=== PATIENT | male | born 2000 | race Caucasian/White ===

== ENCOUNTER 2020-03-19 13:59 | Outpatient (CLI) | payer OTHER, SELFPAY | END 2020-03-19 14:00 | disposition home or self-care (01) | PROVIDERS: PCP Clinical Nurse Specialist; Visit Provider Clinical Nurse Specialist | DX: J02.9 Acute pharyngitis, unspecified (principal) | CPT/HCPCS: 87081; 87880 ==

== ENCOUNTER 2020-07-05 10:32 | Outpatient (CLI) | payer OTHER, SELFPAY ==
--- NOTE | 2020-07-15 12:31 | WPDHOLTEREM ---
Holter/Event Monitor Holter/Event Monitor Date of procedure: 07/05/20 Procedure Type: 48 hour holter monitor Indications: Palpitations Conclusion: 1. 48 hour holter monitor on 07/05/20. 2. Underlying rhythm is sinus rhythm. HR range 43-164 bpm; average HR 77 bpm. 3. There are 8 premature supraventricular complexes. No supraventricular tachycardia. 4. There is 1 premature ventricular complex. No ventricular tachycardia. 5. No sinoatrial or atrioventricular blocks. No significant pauses greater than 2 seconds. 6. No symptoms available for correlation.
== END 2020-07-05 10:33 | disposition home or self-care (01) ==
PROVIDERS: PCP Internal Medicine; Visit Provider Nurse Practitioner
DX: R00.2 Palpitations (principal)
CPT/HCPCS: 93225; 93226

== ENCOUNTER 2023-01-31 15:45 | Emergency (ER) | payer OTHER, SELFPAY ==
[2023-01-31 15:55] VITALS: BP 112/76; PULSE 82; RESP 16; TEMP 36.6; O2SAT 100
--- NOTE | 2023-01-31 15:55 | ED.EAR ---
HPI - Ear Problem General Chief complaint: Ear Stated complaint: lt ear pain Time Seen by Provider: 01/31/23 16:15 Source: patient and RN notes reviewed Mode of arrival: ambulatory Limitations: no limitations History of Present Illness HPI Narrative: 22-year-old male presents concern for left ear pain. Reports pain started yesterday. He denies drainage from the ear. He reports the pain radiates to the jaw and behind the ear. He denies rhinorrhea, nasal congestion, fever. Reports he went swimming couple days ago MD Complaint: ear pain Related Data Allergies Allergy/AdvReac Type Severity Reaction Status Date / Time No Known Allergies Allergy Unverified 01/31/23 15:58 Review of Systems Review of Systems: CONSTITUTIONAL: Denies malaise, chills, sweats, or fever. EYES: Denies visual changes, redness, or discharge. ENT: Denies rhinorrhea, congestion, sinus pain, and sore throat. Reports left ear pain CARDIOVASCULAR: Denies chest pain, palpitations, or edema. RESPIRATORY: Denies cough. Denies dyspnea. GASTROINTESTINAL: Denies abdominal pain, nausea, vomiting, diarrhea SKIN: Denies rash or itching. MUSCULOSKELETAL: Denies myalgia. NEUROLOGIC: Denies headache. All systems reviewed & are unremarkable except as noted in HPI and below PMFSH Family History Family History (Updated 01/12/20 @ 08:37 by Christel Benoit [facility]) Grandparent COPD (chronic obstructive pulmonary disease) PSP (progressive supranuclear palsy) Parkinsons disease Social History Social History (Updated 06/26/20 @ 09:05 by Christel Benoit [facility]) Smoking status: Current some day smoker Alcohol intake: current Alcohol use details: rarely Comments At time of signature, agree with nursing past medical, surgical, social and family history. There is no relevant family history pertinent to the presenting complaint Exam Narrative: GENERAL: Well-appearing, well-nourished, and in no acute distress. HEAD: Normocephalic EYES: PERRLA, conjunctivae clear ENT: Nares clear. Mucous membranes moist. Right tM pearly molina with dull light reflex, left TM erythematous and dull; left tragal tenderness with EAC erythema and edema, no drainage noted. Oropharynx not erythematous without lesions. Tonsils not enlarged and without exudate, no drooling, no hoarseness, no trismus, uvula midline. NECK: Supple. No lymphadenopathy CHEST: No respiratory distress, speaks in full sentences. HEART: Regular rate and rhythm. No murmur heard. SKIN: Warm, dry, no rash. NEURO: Alert and oriented x3. PSYCH: Normal mood and affect Course Course Emergency Course: Patient is aware of diagnosis, understands and agrees to treatment plan. Anticipatory guidance given. Patient agrees to follow-up as directed and is aware of reasons to seek care at the emergency department. Portions of this record may have been created with voice recognition software Level of Care: Express Care Visit Vital Signs Vital signs: Vital Signs Temperature 98 F 01/31/23 15:55 Pulse Rate 82 01/31/23 15:55 Respiratory Rate 16 01/31/23 15:55 Blood Pressure 112/76 01/31/23 15:55 Pulse Oximetry 100 01/31/23 15:55 Temperature 98 F 01/31/23 15:55 Pulse Rate 82 01/31/23 15:55 Respiratory Rate 16 01/31/23 15:55 Blood Pressure 112/76 01/31/23 15:55 Pulse Oximetry 100 01/31/23 15:55 Reviewed. Medical Decision Making MDM Narrative Medical decision making narrative: Differential diagnosis considered: Gore virus, strep pharyngitis, allergic rhinitis, upper respiratory tract infection, sinusitis, rhinosinusitis, nasopharyngitis. viral pharyngitis, otitis media, otitis externa, otitis effusion, cerumen impaction, foreign body. Exam findings show no acute concerns or changes; patient is non-toxic appearing and is in no distress. Patient is appropriate for outpatient treatment and follow-up. Vital Signs Vital Signs: Vital Signs Temperature 98 F 01/31/23 15:55
== END 2023-01-31 16:30 | disposition home or self-care (01) ==
PROVIDERS: Emergency Provider Nurse Practitioner
DX: H60.92 Unspecified otitis externa, left ear (principal); H66.92 Otitis media, unspecified, left ear; F17.200 Nicotine dependence, unspecified, uncomplicated
CPT/HCPCS: 99213; G0463

== ENCOUNTER 2023-12-22 11:39 | Emergency (ER) | payer OTHER, SELFPAY ==
[2023-12-22 11:45] VITALS: BP 110/69; PULSE 70; RESP 16; TEMP 35.9; O2SAT 99
--- NOTE | 2023-12-22 12:33 | ED.GENADULT ---
HPI - General Adult General Chief complaint: Anxiety Stated complaint: ANXIETY Time Seen by Provider: 12/22/23 11:50 Source: patient, family (mother) and RN notes reviewed Mode of arrival: ambulatory Limitations: no limitations History of Present Illness HPI narrative: Patient presents today complaining of anxiety and panic attack symptoms x6 days. They started last week while he was out with friends and included increased heart rate, sweats, hyperventilation, and restlessness. States symptoms improve after eating or sleeping. States symptoms are better today than they had been in the previous days and reports only feelings of underlying restlessness today. Denies any new stressors aside from stopping vaping recently. Denies SI or HI. Made an appointment with his PCP for next week for follow-up. States he went to the ER yesterday for evaluation, but left due to long wait times. Related Data Allergies Allergy/AdvReac Type Severity Reaction Status Date / Time No Known Allergies Allergy Verified 12/22/23 12:27 Review of Systems Review of Systems: CONSTITUTIONAL: Denies body aches, fever, chills, or sweats. EYES: Denies visual changes, redness, or discharge. ENT: Denies rhinorrhea, congestion, sore throat, or otalgia. CARDIOVASCULAR: Denies chest pain, palpitations, or edema. RESPIRATORY: Denies cough or dyspnea. GASTROINTESTINAL: Denies abdominal pain, nausea, vomiting, or diarrhea. GENITOURINARY: Denies dysuria or hematuria. SKIN: Denies rash, itching, or wounds. MUSCULOSKELETAL: Denies back pain, joint pain, or myalgia. NEUROLOGIC: Denies headache, numbness, tingling, or weakness. PSYCH: +anxiety [facility] Family History Family History Grandparent COPD (chronic obstructive pulmonary disease) PSP (progressive supranuclear palsy) Parkinsons disease Social History Social History Smoking status: Current some day smoker Alcohol intake: current Alcohol use details: rarely Comments At time of signature, I have reviewed and agree with nursing past medical, surgical, social and family history unless otherwise noted. Please see nursing chart for further information. There is no relevant family history pertinent to the presenting complaint Exam Narrative: GENERAL: Well-appearing, well-nourished, and in no acute distress. HEAD: Normocephalic, atraumatic. EYES: EOMI. No redness or drainage. Conjunctivae normal. ENT: Mucous membranes pink and moist. Nares clear. No rhinorrhea. NECK: Normal AROM. Supple. No lymphadenopathy. CHEST: No respiratory distress. Clear to auscultation. HEART: Regular rate and rhythm. No murmur appreciated. EXTREMITIES: Normal range of motion. No edema. SKIN: Warm, dry, no rash. Capillary refill normal. Normal skin turgor. NEURO: No focal deficits. Alert and oriented x3. Gait steady. PSYCH: Mildy anxious. Course Course Level of Care: Express Care Visit Vital Signs Vital signs: Vital Signs Temperature 96.7 F L 12/22/23 11:45 Pulse Rate 70 12/22/23 11:45 Respiratory Rate 16 12/22/23 11:45 Blood Pressure 110/69 12/22/23 11:45 Pulse Oximetry 99 12/22/23 11:45 Temperature 96.7 F L 12/22/23 11:45 Pulse Rate 70 12/22/23 11:45 Respiratory Rate 16 12/22/23 11:45 Blood Pressure 110/69 12/22/23 11:45 Pulse Oximetry 99 12/22/23 11:45 Reviewed Medical Decision Making MDM Narrative Medical decision making narrative: Prescription for hydroxyzine sent to pharmacy. Recommend keeping scheduled visit with PCP next week. Anticipatory guidance given. Differential Diagnosis Differential Diagnosis: Anxiety, panic attack Vital Signs Vital Signs: Vital Signs Temperature 96.7 F L 12/22/23 11:45 Pulse Rate 70 12/22/23 11:45 Respiratory Rate 16 12/22/23 11:45 Blood Pressure 110/69 12/22/23 11:45 Pulse Oximet
== END 2023-12-22 12:40 | disposition home or self-care (01) ==
PROVIDERS: Emergency Provider Nurse Practitioner; PCP Internal Medicine
DX: F41.9 Anxiety disorder, unspecified (principal); F17.200 Nicotine dependence, unspecified, uncomplicated
CPT/HCPCS: 99213; G0463

== ENCOUNTER 2023-12-31 11:02 | Outpatient (CLI) | payer OTHER, SELFPAY ==
[2023-12-31 18:34] LABS: Basophils Absolute Auto 0.1 K/mm3 (0.0-0.1); Basophils Percent Auto 1.2 % (0.2-1.2); Eosinophils Absolute Auto 0.2 K/mm3 (0-0.3); Eosinophils Percent Auto 2.4 % (0-4.4); Hematocrit 47.3 % (42.0-52.0); Hemoglobin 15.9 g/dL (14.0-18.0); Immature Granulocyte Absolute 0.03 K/mm3 (0.00-0.031); Immature Granulocyte Percent A 0.4 % (0-0.5); Immature Platelet Fraction Pct 6.9 % (0.9-11.2); Lymphocytes Absolute Auto 2.64 K/mm3 (0.9-3.2); Lymphocytes Percent Auto 34.8 % (18.3-44.2); Mean Corpuscular HGB Conc 33.6 g/dl (32-36); Mean Corpuscular Hemoglobin 28.6 pg (26-34); Mean Corpuscular Volume 85.2 fl (80-100); Mean Platelet Volume 11.8 fl (7.4-10.4); Monocytes Absolute Auto 0.6 K/mm3 (0.1-0.6); Monocytes Percent Auto 7.6 % (2.6-8.5); Neutrophils Absolute Auto 4.1 K/mm3 (1.3-6.7); Neutrophils Percent Auto 53.6 % (45.5-73.1); Platelet Count Result 159 k/mm3 (150-375); Red Blood Count 5.55 M/mm3 (4.6-6.20); Red Cell Distribution Width 11.9 % (11.5-14.5); White Blood Count 7.6 K/mm3 (4.5-10.0)
[2023-12-31 18:44] LABS: Alanine Aminotransferase 25 U/L (6-50); Albumin Level 5.4 g/dL (3.5-5.1); Alkaline Phosphatase 52 U/L (38-126); Anion Gap 11 mmol/L (4-12); Aspartate Amino Transferase 37 U/L (17-59); Bilirubin,Total 2.3 mg/dL (0.2-1.3); Blood Urea Nitrogen 15 mg/dL (9-20); Calcium 10.3 mg/dL (8.4-10.2); Carbon Dioxide 26 mmol/L (22-30); Chloride 103 mmol/L (98-107); Cholesterol 144 mg/dL (0-200); Estimated Glomerular Filt Rate > 60; Glucose 79 mg/dL (65-110); HDL Direct 63 mg/dL; Potassium 4.5 mmol/L (3.4-5.0); Sodium 140 mmol/L (137-145); Triglycerides 59 mg/dL (<150)
[2023-12-31 18:54] LABS: LDL Cholesterol Direct 67 mg/dL
[2023-12-31 19:10] LABS: Thyroid Stimulating Hormone 0.843 uIU/mL (0.465-4.680)
== END 2023-12-31 11:03 | disposition home or self-care (01) ==
LOC: ANHGOSHLAB 11:03
PROVIDERS: PCP Internal Medicine; Visit Provider Nurse Practitioner
DX: F41.9 Anxiety disorder, unspecified (principal); Z13.220 Encounter for screening for lipoid disorders
CPT/HCPCS: 36415; 80053; 80061; 84443; 85025; 85055

== ENCOUNTER 2024-10-02 18:45 | Emergency (ER) | payer OTHER, SELFPAY ==
[2024-10-02 19:19] VITALS: BP 116/80; PULSE 86; RESP 16; TEMP 36.1; O2SAT 100
--- NOTE | 2024-10-02 20:18 | ED_ITS ---
HPI - Anxiety General Chief Complaint: Anxiety Stated Complaint: Anxiety Time Seen by Provider: 10/02/24 20:10 Source: patient, RN notes reviewed and old records reviewed Mode of arrival: ambulatory Limitations: no limitations History of Present Illness HPI narrative: 23 [facility] with complaints of having some increased anxiety for the past week. Patient states that he-recently started a new job and has been on doing some projects on his own. Patient denies any palpitations or any chest pain sweats, nausea or any dizziness,denies any feelings of self harm. Patient is clean and well kept, maintains eye contact. MD complaint: anxiety Onset (ago): week(s) History of similar episodes: Yes Associated symptoms: other (feeling anxious, ) Related Data Allergies Allergy/AdvReac Type Severity Reaction Status Date / Time No Known Allergies Allergy Verified 10/02/24 19:13 Review of Systems Review of Systems: CONSTITUTIONAL: Denies fever, chills, or sweats. EYES: Denies visual changes, redness, or discharge. ENT: Denies rhinorrhea, congestion, sore throat, or otalgia. CARDIOVASCULAR: Denies chest pain, palpitations, or edema. RESPIRATORY: Denies cough or dyspnea. GASTROINTESTINAL: Denies abdominal pain, nausea, vomiting, or diarrhea. GENITOURINARY: Denies dysuria or hematuria. SKIN: Denies rash or itching. MUSCULOSKELETAL: Denies back pain, joint pain, or myalgia. NEUROLOGIC: Denies headache, numbness, or weakness. PSYCHIATRIC: Reports anxiety or depression. All systems reviewed & are unremarkable except as noted in HPI and below PMFSH Past Medical History Medical History Anxiety Family History Family History Grandparent COPD (chronic obstructive pulmonary disease) PSP (progressive supranuclear palsy) Parkinsons disease Diabetes mellitus Father Asthma Mother Hypertension Social History Social History Smoking status: Current some day smoker Tobacco type: e-cigarettes/vaping Alcohol intake: current Alcohol use details: rarely Substance use: former Substance use type: does not use Last use: No longer smokes marijuana Do You Feel Safe in your Home?: Yes Lack of Transportation: No Lack of Food: Never True Current Housing: I Have Housing Concerned About Future Housing: No Difficulty Paying Gas/Electric Bills: No Difficulty Paying for Meds: No Currently Unemployed: No Education: High School Diploma/GED Difficulty w/ Childcare or Family Care: No Living arrangements: alone Occupation/Education: occupation Additional occupation/education comments: [employer] Gender identity (if verbalized by the patient): Male Agree to blood products: Yes Comments At time of signature, agree with nursing past medical, surgical, social and family history. There is no relevant family history pertinent to the presenting complaint Exam Narrative: GENERAL: Well-appearing, well-nourished, and in no acute distress. HEAD: Normocephalic, atraumatic. EYES: PERRLA and EOMI. ENT: Nares clear, no rhinorrhea or epistaxis. Mucous membranes moist.TM's normal throat pink with no swelling NECK: Supple. no lymphadenopathy CHEST: Clear to auscultation. No respiratory distress.no cough SAO2 100% on room air HEART: Regular rate and rhythm. No murmur heard. Normal peripheral pulses. ABDOMEN: Soft, nontender, nondistended, normal active bowel sounds. EXTREMITIES: Normal range of motion. No edema. SKIN: Warm, dry, no rash. NEURO: No focal deficits. Alert and oriented x3. anxious, maintains eye contact Course Course Emergency Course: Patient is aware of diagnosis, understands and agrees to treatment plan.? Anticipatory guidance given.? Patient agrees to follow-up as directed and is aware of reasons to seek care at the emergency department. Portions of this record may have been created with voice recognition software Level of Care: Express Care Visit Vital Signs Vital signs: Vital Signs Temperature 36.1 C L 10/02/24 19:19 Pulse Rate 86 10/02/24 19:19 Respiratory Rate 16 10/02/24 19:19 Blood Pressure 116/80 10/02/24 19:19 Pulse Oximetry 100 10/02/24 19:19 Temperature 36.1 C L 10/02/24 19:19 Pulse Rate 86 10/02/24 19:19 Respiratory Rate 16 10/02/24 19:19 Blood Pressure 116/80 10/02/24 19:19 Pulse Oximetry 100 10/02/24 19:19 Reviewed MDM - Anxiety Differential Diagnosis Differential diagnosis: Likely acute anxiety and other (anxiety, anxiety disorder,) Medical Records Attestation: I reviewed the patient's medical records. Critical Care Time Critical Care Time Critical Care Time: No Discharge Plan Discharge Clinical Impression: Anxiety Patient Disposition: Home, Self-Care Condition: Stable Instructions: Anxiety (ED) Additional Instructions: Hydroxyzine as prescribed for acute anxiety Encouraged patient to follow up with PCP If your symptoms persist, change or worsen significantly before you can contact your personal physician then please, without delay, go to the emergency department for further evaluation. Follow-up with PCP in 7-10 days or sooner if needed Patient Language: Khmer Prescriptions: New hydroxyzine HCl 50 mg tablet 50 mg PO TID PRN (Reason: anxiety) Qty: 20 0RF Follow-up/Referrals: PHYSICIAN,SUBSTATION WIREMAN [Primary Care Provider] - Time of Disposition: 20:32 Quality [place] Coma Scale Eyes: Open Verbal: Oriented and Alert Motor: Follows Commands [place] Coma Total Score: 15
== END 2024-10-02 20:35 | disposition home or self-care (01) ==
PROVIDERS: Emergency Provider Registered Nurse
DX: F41.9 Anxiety disorder, unspecified (principal); F17.290 Nicotine dependence, other tobacco product, uncomplicated
CPT/HCPCS: 99213; G0463

== ENCOUNTER 2025-02-07 18:06 | Emergency (ER) | payer OTHER, SELFPAY ==
[2025-02-07 18:10] VITALS: BP 120/86; PULSE 87; RESP 16; TEMP 36.8; O2SAT 100
--- NOTE | 2025-02-07 18:10 | ED_ITS ---
HPI - Extremity Injury (Lower) General Chief Complaint: Skin/Abscess/Foreign Body Stated Complaint: Right Knee Pain Source: patient and RN notes reviewed Mode of arrival: ambulatory Limitations: no limitations History of Present Illness HPI Narrative: Patient is a 24-year-old male who presents to the [facility] with complaints of wound just below his right knee. He states that he noted what looked like a pimple 2 days ago. He states that over the span of the last 2 days, the area has increased in size, become more tender, and developed redness around the wound. He believes he may have been bit by an insect. He has full range of motion of his right knee. Distal neurovascular and motor status intact. Denies recent fevers. Related Data Allergies Allergy/AdvReac Type Severity Reaction Status Date / Time No Known Allergies Allergy Verified 02/07/25 18:10 Review of Systems Review of Systems: CONSTITUTIONAL: Denies fever, chills, or sweats. EYES: Denies visual changes, redness, or discharge. ENT: Denies otalgia and sore throat CARDIOVASCULAR: Denies chest pain, palpitations, or edema. RESPIRATORY: Denies cough or dyspnea. GASTROINTESTINAL: Denies abdominal pain, nausea, vomiting, or diarrhea. GENITOURINARY: Denies dysuria or hematuria. SKIN: Wound just below the right knee with surrounding redness and swelling. MUSCULOSKELETAL: Denies back pain, joint pain, or myalgia. NEUROLOGIC: Denies headache, numbness, or weakness. Pertinent positives per HPI. [facility] Past Medical History Medical History Anxiety Family History Family History Grandparent COPD (chronic obstructive pulmonary disease) PSP (progressive supranuclear palsy) Parkinsons disease Diabetes mellitus Father Asthma Mother Hypertension Social History Social History Smoking status: Current some day smoker Tobacco type: e-cigarettes/vaping Alcohol intake: current Alcohol use details: rarely Substance use: former Substance use type: does not use Last use: No longer smokes marijuana Do You Feel Safe in your Home?: Yes Lack of Transportation: No Lack of Food: Never True Current Housing: I Have Housing Concerned About Future Housing: No Difficulty Paying Gas/Electric Bills: No Difficulty Paying for Meds: No Currently Unemployed: No Education: High School Diploma/GED Difficulty w/ Childcare or Family Care: No Living arrangements: alone Occupation/Education: occupation Additional occupation/education comments: [employer] Gender identity (if verbalized by the patient): Male Agree to blood products: Yes Comments At the time of my signature, I reviewed and agree with the nursing past medical, surgical, social, and family history. There is no relevant family history pertinent to the patient complaint. Exam Narrative: GENERAL: This is a well-nourished, well-developed patient, in no apparent distress. HEAD: normocephalic, atraumatic. EYES: Sclera clear/white. Vision is grossly intact. EARS: External ears normal. Hearing grossly intact. NOSE: External nose normal with no obvious nasal discharge, nares without redness, no rhinorrhea. THROAT: Mucous membranes moist, posterior pharynx clear. NECK: Neck supple, non-tender without lymphadenopathy, masses or thyromegaly. CARDIOVASCULAR: Regular rate and rhythm without murmurs, gallops, or rubs. RESPIRATORY: Clear to auscultation. Breath sounds equal bilaterally. No wheezes, rales, or rhonchi. GASTROINTESTINAL: Abdomen soft, non-tender, nondistended. Bowel sounds are active. No hepato-splenomegaly, or palpable masses. No guarding. SKIN: 2 x 2 cm abscess with surrounding erythema and swelling just distal to the right knee. + induration. + tenderness. Distal neurovascular and motor status intact. Full range of motion of the right knee without difficulty. NEURO: awake, alert, and oriented to person, place and time. There were no obvious focal neurologic abnormalities. Course Course Level of Care: Express Care Visit Vital Signs Vital signs: Vital Signs Temperature 98.2 F 02/07/25 18:10 Pulse Rate 87 02/07/25 18:10 Respiratory Rate 16 02/07/25 18:10 Blood Pressure 120/86 02/07/25 18:10 Pulse Oximetry 100 02/07/25 18:10 Oxygen Delivery Room Air 02/07/25 18:10 Temperature 98.2 F 02/07/25 18:10 Pulse Rate 87 02/07/25 18:10 Respiratory Rate 16 02/07/25 18:10 Blood Pressure 120/86 06/18/25 18:10 Pulse Oximetry 100 02/07/25 18:10 Oxygen Delivery Room Air 02/07/25 18:10 Reviewed MDM - Extremity Injury (Lower) MDM Narrative Medical decision making narrative: Clean with soap and water only; Avoid using alcohol and peroxide. Elevate the affected area if possible Alternate Tylenol/ibuprofen for as needed for pain Acetaminophen(Tylenol) 650- 1000mg every 4-6hours with max of 4000mg/day. Nonsteroidal anti-inflammatory agent (NSAIDs-ibuprofen): 400mg every 4-6hours with max 2400mg/day Take antibiotic until it's gone. Please schedule a follow up visit with your personal physician for further evaluation and treatment within 3-5days OR if your symptoms persist, change or worsen significantly before you can contact your personal physician then please, without delay, go to the emergency department for further evaluation. Differential Diagnosis Differential diagnosis: Likely acute internal derangement of knee and other (cellulitis, abscess, knee contusion, insect bite) Critical Care Time Critical Care Time Critical Care Time: No Discharge Plan Discharge Clinical Impression: Infected wound Patient Disposition: Home Condition: Stable Instructions: Antibiotic Form Additional Instructions: Clean with soap and water only; Avoid using alcohol and peroxide. Elevate the affected area if possible Alternate Tylenol/ibuprofen for as needed for pain Acetaminophen(Tylenol) 650- 1000mg every 4-6hours with max of 4000mg/day. Nonsteroidal anti-inflammatory agent (NSAIDs-ibuprofen): 400mg every 4-6hours with max 2400mg/day Take antibiotic until it's gone. Please schedule a follow up visit with your personal physician for further evaluation and treatment within 3-5days OR if your symptoms persist, change or worsen significantly before you can contact your personal physician then please, without delay, go to the emergency department for further evaluation. Patient Language: Kazakh Prescriptions: New cephalexin 500 mg capsule 500 mg PO Q8H 10 Days Qty: 30 0RF sulfamethoxazole-trimethoprim 800-160 mg tablet 1 tablet PO Q12H 10 Days Qty: 20 0RF No Action hydroxyzine HCl 50 mg tablet 50 mg PO TID PRN (Reason: anxiety) Qty: 20 0RF Follow-up/Referrals: PHYSICIAN,NEGOTIATOR SALES [Primary Care Provider] - Time of Disposition: 18:19
== END 2025-02-07 18:22 | disposition home or self-care (01) ==
PROVIDERS: Emergency Provider Nurse Practitioner
DX: S81.801A Unspecified open wound, right lower leg, initial encounter (principal); L08.9 Local infection of the skin and subcutaneous tissue, unspecified; X58.XXXA Exposure to other specified factors, initial encounter; F17.290 Nicotine dependence, other tobacco product, uncomplicated
CPT/HCPCS: 99213; G0463